=== PATIENT | male | born 1995 | race Caucasian/White ===

== ENCOUNTER 2022-01-23 02:10 | Emergency (ER) | payer OTHER ==
[2022-01-23 02:26] VITALS: TEMP 99.2; BMI 23.5
[2022-01-23] MEDS ORDERED: KETOROLAC TROMETHAMINE 30 MG/1 ML VIAL IVPUSH ONE (03:12)
[2022-01-23] MEDS ORDERED: KETOROLAC TROMETHAMINE 30 MG/1 ML VIAL ONE (03:16)
[2022-01-23] MEDS ORDERED: morphine CARPU-JECT 4 MG/1 ML DISP.SYRIN IVPUSH ONE ×2 (04:05→05:33)
[2022-01-23] MEDS ORDERED: MIDAZOLAM HCL 2 MG/2 ML SINGLE DOSE VIAL IVPUSH ONE ×2 (04:05→05:34)
[2022-01-23] MEDS ORDERED: MIDAZOLAM HCL 2 MG/2 ML SINGLE DOSE VIAL ONE ×2 (04:12→04:39)
[2022-01-23] MEDS ORDERED: morphine SULFATE 4 MG/ML VIAL ONE ×2 (04:12→04:38)
[2022-01-23] MEDS ORDERED: DIPHTH,PERTUSS(ACELL),TET 0.5 ML DISP.SYRIN IM ONE ×2 (05:09→05:30)
[2022-01-23 05:28] VITALS: BP 118/70; PULSE 70; RESP 16
[2022-01-23] MEDS ORDERED: KETAMINE HCL 200 MG/20 ML VIAL IVPUSH ONE ×2 (07:10→07:30)
[2022-01-23] MEDS ORDERED: KETAMINE HCL 200 MG/20 ML VIAL ONE (07:14)
== END 2022-01-23 10:07 | disposition home or self-care (01) ==
LOC: FER 02:10
PROC: 3E0333Z Introduction of Anti-inflammatory into Peripheral Vein, Percutaneous Approach (ICD-10-PCS; principal; 2022-01-23)
PROC: 3E033GC Introduction of Other Therapeutic Substance into Peripheral Vein, Percutaneous Approach (ICD-10-PCS; 2022-01-23)
PROC: 3E033GC Introduction of Other Therapeutic Substance into Peripheral Vein, Percutaneous Approach (ICD-10-PCS; 2022-01-23)
PROC: 3E0234Z Introduction of Serum, Toxoid and Vaccine into Muscle, Percutaneous Approach (ICD-10-PCS; 2022-01-23)
PROC: 3E033GC Introduction of Other Therapeutic Substance into Peripheral Vein, Percutaneous Approach (ICD-10-PCS; 2022-01-23)
PROC: 3E033GC Introduction of Other Therapeutic Substance into Peripheral Vein, Percutaneous Approach (ICD-10-PCS; 2022-01-23)
PROC: 3E030FZ Introduction of Intracirculatory Anesthetic into Peripheral Vein, Open Approach (ICD-10-PCS; 2022-01-23)
DX: S53.105A Unspecified dislocation of left ulnohumeral joint, initial encounter (principal)
CPT/HCPCS: 73070-TC-LT-FY; 90471; 90715; 96374; 96375; 96376; 99285-25